=== PATIENT | male | born 1995 | race Caucasian/White ===

== ENCOUNTER 2019-09-01 19:06 | Emergency (ER) | payer OTHER ==
[2019-09-01] MEDS ORDERED: SODIUM CHLORIDE 0.9% 1,000 ML IV STA (20:18)
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
[2019-09-01] MEDS ORDERED: MORPHINE SULFATE 4 MG/ML SYRINGE IVP PRN (20:46)
[2019-09-01] MEDS ORDERED: ONDANSETRON 4 MG/2 ML VIAL IVP STA (20:46)
[2019-09-01 20:58] LABS: Basophils % (A) 1 %; Eosinophils # (A) 0.1 k/uL (0-0.7); Eosinophils % (A) 2 %; HCT 51.1 % (39.0-53.0); Lymphocytes # (A) 2.8 k/uL (1.0-4.8); Lymphocytes % (A) 31 %; MCH 30.5 pg (25.0-35.0); MCHC 33.2 g/dL (31.0-37.0); MCV 91.9 fL (80.0-100.0); Mean Platelet Volume 5.5; Monocytes # (A) 0.4 k/uL (0-1.0); Monocytes % (A) 5 %; Neutrophils # (A) 5.3 k/uL (1.3-7.7); Neutrophils % (A) 60 %; Platelet Count 441 k/uL (150-450); RBC 5.56 m/uL (4.30-5.90); RDW 13.3 % (11.5-15.5); WBC 8.8 k/uL (3.8-10.6)
[2019-09-01 21:09] LABS: INR 0.9 (<1.2); Partial Thromboplastin Time 22.3 sec (22.0-30.0); Prothrombin Time 10.1 sec (9.0-12.0)
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
[2019-09-01] MEDS ORDERED: ACETAMINOPHEN TAB 325 MG TAB PO STA (21:29)
[2019-09-01] MEDS ORDERED: ACET/COD 300 MG/30 MG STARTER PACK 6 TAB BTL PO STA (21:29)
[2019-09-01] MEDS ORDERED: KETOROLAC 30 MG/ML 1 ML VIAL IVP STA (21:29)
[2019-09-01 21:30] LABS: ALT 114 U/L (21-72); AST 63 U/L (17-59); African American GFR (CKD) >90 (>60 ml/min/1.73 sqM); Albumin 4.6 g/dL (3.5-5.0); Alcohol <10 mg/dL; Alkaline Phosphatase 37 U/L (38-126); Anion Gap 14 mmol/L; Blood Urea Nitrogen 17 mg/dL (9-20); Carbon Dioxide 24 mmol/L (22-30); Chloride 102 mmol/L (98-107); Creatine Kinase 228 U/L (55-170); Glucose 106 mg/dL (74-99); Potassium 4.7 mmol/L (3.5-5.1); Sodium 140 mmol/L (137-145); Total Bilirubin 0.6 mg/dL (0.2-1.3)
[2019-09-01 22:04] VITALS: BP 152/74; PULSE 69; RESP 18; TEMP 98
== END 2019-09-01 22:04 | disposition home or self-care (01) ==
LOC: EC 19:06
DX: M54.2 Cervicalgia (principal); R07.9 Chest pain, unspecified; R10.9 Unspecified abdominal pain; M79.606 Pain in leg, unspecified; V40.5XXA Car driver injured in collision with pedestrian or animal in traffic accident, initial encounter; Y92.410 Unspecified street and highway as the place of occurrence of the external cause
CPT/HCPCS: 36415; 93005; 86900; 86901; 80053; 82550; 83605; 84484; 85025; 85610; 85730; 86850; 80320; 72125; 70450; 71260; 74177; 99285; 96374; 96375 ×2; 96361; J2270; J2405; J1885; Q9967

== ENCOUNTER 2020-02-01 09:37 | Emergency (ER) | payer OTHER ==
[2020-02-01 09:50] VITALS: BP 135/80; PULSE 90; TEMP 99
--- NOTE | 2020-02-01 10:12 | ED ---
General Adult HPI - General Chief complaint: Upper Respiratory Infection Stated complaint: Cough, Runny Nose, SOB Time Seen by Provider: 02/01/20 09:50 Source: patient, RN notes reviewed, old records reviewed Mode of arrival: ambulatory Limitations: no limitations - History of Present Illness Initial comments: This is a 24-year-old male complaining of a cough and runny nose. Patient denied any shortness of breath. Patient states he didn't take his temperature but he didn't feel hot. Patient denies chills. Patient denies any chest pain or palpitations. Patient denies any abdominal pain patient denies nausea vomiting diarrhea. Patient states he came to the emergency department because no other physician to see him in person only telemedicine. - Related Data Home Medications Medication Instructions Recorded Confirmed Hydrochlorothiazide 25 mg PO DAILY 02/01/20 02/01/20 Omeprazole 20 mg PO DAILY PRN 02/01/20 02/01/20 Allergies Allergy/AdvReac Type Severity Reaction Status Date / Time No Known Allergies Allergy Verified 02/01/20 10:30 Review of Systems ROS Statement: Those systems with pertinent positive or pertinent negative responses have been documented in the HPI. ROS Other: All systems not noted in ROS Statement are negative. Past Medical History Past Medical History: Hypertension History of Any Multi-Drug Resistant Organisms: None Reported Past Surgical History: No Surgical Hx Reported Additional Past Surgical History / Comment(s): oral Past Psychological History: Anxiety Smoking Status: Never smoker Past Alcohol Use History: Occasional Past Drug Use History: None Reported General Exam - General Exam Comments Initial Comments: GENERAL: Patient is well-developed and well-nourished. Patient is nontoxic and well- hydrated and is in mild distress. ENT: Neck is soft and supple. No significant lymphadenopathy is noted. Oropharynx is clear. Moist mucous membranes. Neck has full range of motion without eliciting any pain. EYES: The sclera were anicteric and conjunctiva were pink and moist. Extraocular movements were intact and pupils were equal round and reactive to light. Eyelids were unremarkable. PULMONARY: Unlabored respirations. Good breath sounds bilaterally. No audible rales rhonchi or wheezing was noted. CARDIOVASCULAR: There is a regular rate and rhythm without any murmurs gallops or rubs. ABDOMEN: Soft and nontender with normal bowel sounds. SKIN: Skin is clear with no lesions or rashes and otherwise unremarkable. NEUROLOGIC: Patient is alert and oriented x3. Cranial nerves II through XII are grossly intact. Motor and sensory are also intact. Normal speech, volume and content. Symmetrical smile. MUSCULOSKELETAL: Normal extremities with adequate strength and full range of motion. No lower extremity swelling or edema. No calf tenderness. LYMPHATICS: No significant lymphadenopathy is noted PSYCHIATRIC: Normal psychiatric evaluation. Limitations: no limitations Course Vital Signs 02/01/20 09:47 Temperature 99 F Pulse Rate 90 Respiratory 18 Rate Blood Pressure 135/80 O2 Sat by Pulse 98 Oximetry Medical Decision Making - Medical Decision Making Chest x-ray shows no acute abnormality. Disposition Clinical Impression: Upper respiratory tract infection Disposition: HOME SELF-CARE Condition: Good Instructions (If sedation given, give patient instructions): Upper Respiratory Infection (ED) Additional Instructions: Patient should self quarantine for 2 weeks Is patient prescribed a controlled substance at d/c from ED?: No Referrals: None,Stated [Primary Care Provider] - 1-2 days Time of Disposition: 10:35
--- NOTE | 2020-02-01 10:29 | XR ---
EXAMINATION TYPE: XR chest 2V DATE OF EXAM: 02/01/2020 COMPARISON: None HISTORY: 24-year-old male difficulty breathing TECHNIQUE: PA and lateral views FINDINGS: The cardiomediastinal silhouette, aorta, and pulmonary vasculature are within normal limits. Lungs an d pleural spaces are clear. IMPRESSION: No acute cardiopulmonary process.
[2020-02-01 10:40] VITALS: RESP 20
== END 2020-02-01 10:40 | disposition home or self-care (01) ==
LOC: EC 09:37
DX: J06.9 Acute upper respiratory infection, unspecified (principal); I10 Essential (primary) hypertension; Z79.899 Other long term (current) drug therapy
CPT/HCPCS: 71046; 99285

== ENCOUNTER 2021-02-17 11:24 | Emergency (ER) | payer OTHER ==
[2021-02-17 11:58] VITALS: BP 135/84; PULSE 102; RESP 20; TEMP 98.8
--- NOTE | 2021-02-17 12:00 | ED ---
Lower Extremity Injury HPI - General Source: patient, RN notes reviewed Mode of arrival: wheelchair Limitations: no limitations <Eddie Valdes - Last Filed: 02/17/21 11:58> <Cabrera Barth - Last Filed: 02/17/21 12:33> - General Stated Complaint: Possible broken foot Time Seen by Provider: 02/17/21 11:55 - History of Present Illness Initial Comments: 25-year-old male presents emergency Department with chief complaint of left foot pain. Patient states he landed awkwardly during his martial arts. Patient states that he's had no prior fractures. Patient states it hurts to ambulate states it hurts across his mid foot denies any ankle pain no other injuries noted. (Eddie Valdes) This is a 25-year-old male who comes in stating that he has left foot pain. Patient states he landed on it yesterday while doing [employer]. Patient states the pain is at the distal aspect of the second and first metatarsal. Patient denies any ankle pain or knee pain. Patient has any toe pain. (Cabrera Barth) - Related Data Home Medications Medication Instructions Recorded Confirmed Omeprazole 20 mg PO DAILY PRN 02/01/20 02/01/20 hydroCHLOROthiazide 25 mg PO DAILY 02/01/20 02/01/20 Previous Rx's Medication Instructions Recorded Ibuprofen [Motrin] 600 mg PO Q6HR PRN #20 tab 02/17/21 Allergies Allergy/AdvReac Type Severity Reaction Status Date / Time No Known Allergies Allergy Verified 02/17/21 11:58 Review of Systems ROS Other: All systems not noted in ROS Statement are negative. <Eddie Valdes - Last Filed: 02/17/21 11:58> ROS Other: All systems not noted in ROS Statement are negative. <Cabrera Barth - Last Filed: 02/17/21 12:33> ROS Statement: Those systems with pertinent positive or pertinent negative responses have been documented in the HPI. Past Medical History Past Medical History: Hypertension History of Any Multi-Drug Resistant Organisms: None Reported Past Surgical History: No Surgical Hx Reported Additional Past Surgical History / Comment(s): oral Past Psychological History: Anxiety Smoking Status: Never smoker Past Alcohol Use History: Occasional Past Drug Use History: None Reported <Eddie Valdes - Last Filed: 02/17/21 11:58> General Exam Limitations: no limitations General appearance: alert, in no apparent distress Head exam: Present: atraumatic, normocephalic, normal inspection Neck exam: Present: normal inspection, full ROM. Absent: tenderness, meningismus, lymphadenopathy Respiratory exam: Present: normal lung sounds bilaterally. Absent: respiratory distress, wheezes, rales, rhonchi, stridor Cardiovascular Exam: Present: regular rate, normal rhythm, normal heart sounds. Absent: systolic murmur, diastolic murmur, rubs, gallop, clicks Extremities exam: Present: other (Left foot there is tenderness on the first through the third metatarsal) <Eddie Valdes - Last Filed: 02/17/21 11:58> <Cabrera Barth - Last Filed: 02/17/21 12:33> - General Exam Comments Initial Comments: GENERAL Patient is well-developed and well-nourished. Patient is in mild distress. EYES Patient's pupils are equal and round. Extraocular motion is intact SKIN Unremarkable NEURO The patient is alert and oriented 3 PYSCH Patient has normal interpersonal interactions. MUSCULOSKELETAL Patient has tenderness between the first and second toe at the distal aspect of the metatarsal. There is no swelling to the area or redness. (Cabrera Barth) Course Vital Signs 02/17/21 11:55 Temperature 98.8 F Pulse Rate 102 H Respiratory 20 Rate Blood Pressure 135/84 O2 Sat by Pulse 97 Oximetry Medical Decision Making <Cabrera Barth - Last Filed: 02/17/21 12:33> - Medical Decision Making X-ray of the foot shows no acute fracture. Patient is instructed to follow-up with orthopedics if he continues to hurt. (Cabrera Barth) Disposition <Eddie Valdes - Last Filed: 02/17/21 11:58> Is patient prescribed a controlled substance at d/c from ED?: No Time of Disposition: 12:33 <Cabrera Barth - Last Filed: 02/17/21 12:33> Clinical Impression: Foot sprain Disposition: HOME SELF-CARE Condition: Good Instructions (If sedation given, give patient instructions): Foot Sprain (ED) Prescriptions: Ibuprofen [Motrin] 600 mg PO Q6HR PRN #20 tab PRN Reason: For pain Referrals: Karlos Butcher MD [Primary Care Provider] - 1-2 days
--- NOTE | 2021-02-17 12:17 | XR ---
EXAMINATION TYPE: XR foot complete LT DATE OF EXAM: 02/17/2021 COMPARISON: NONE HISTORY: Pain TECHNIQUE: Three views are submitted. FINDINGS: The osseous structures are intact. There is no acute fracture or dislocation. Joint spaces are p reserved. IMPRESSION: 1. No acute fracture or dislocation. If symptoms persist, follow-up exam in 7 to 10 days could be ob tained.
== END 2021-02-17 12:50 | disposition home or self-care (01) ==
LOC: EC 11:24
DX: S93.602A Unspecified sprain of left foot, initial encounter (principal); I10 Essential (primary) hypertension; F41.9 Anxiety disorder, unspecified; X50.1XXA Overexertion from prolonged static or awkward postures, initial encounter; Y93.75 Activity, martial arts
CPT/HCPCS: 99283